=== PATIENT | male | born 1995 | race Asian ===

== ENCOUNTER 2020-03-26 23:38 | Emergency (ER) | payer BC, SELFPAY ==
[2020-03-26 23:44] VITALS: BP 148/98; PULSE 91; RESP 22; TEMP 36.9; O2SAT 100
--- NOTE | 2020-03-26 23:49 | ED.SOB ---
HPI - SOB/Dyspnea General Chief Complaint: Shortness of Breath/Dyspnea Stated Complaint: SHORTNESS OF BREATH, LIGHTHEADED Time Seen by Provider: 03/26/20 23:40 Source: patient Mode of arrival: Ambulatory Limitations: no limitations History of Present Illness HPI Narrative: 25M nonsmoker with history of chronic kidney disease presents with his mother and a chief complaint of shortness of breath, fatigue, poor appetite and dizziness over the course of the week. He has had no fever chills. He denies any runny nose, sore throat or cough. He denies exposure to coronavirus. He denies any chest pain or abdominal pain. He sees Dr. Salmeron and has never had dialysis. He denies dietary change or new medications. MD Complaint: shortness of breath Onset (ago): day(s) Severity: moderate Consistency/Duration: constant Relieving factors: rest Exacerbating factors: exertion Associated symptoms: dizziness Treatment prior to arrival: none Related Data Home oxygen amount: none Allergies Allergy/AdvReac Type Severity Reaction Status Date / Time No Known Drug Allergies Allergy Verified 03/26/20 23:45 Review of Systems Constitutional Constitutional: Denies chills, Denies fatigue, Denies fever(s), Denies frequent falls, Denies lethargy and Reports weakness Eyes Eyes: Denies change in vision, Denies eye discharge, Denies irritation and Denies loss of vision ENT Ears, Nose, Mouth, and Throat: Denies change in voice, Reports dizziness, Denies neck pain, Denies sore throat and Denies throat swelling Cardiovascular Cardiovascular: Denies chest pain, Denies irregular heart rhythm, Denies lightheadedness, Denies palpitations, Denies dyspnea, Denies dyspnea on exertion and Denies orthopnea Respiratory Respiratory: Denies cough, Denies dyspnea, Denies dyspnea on exertion and Denies wheezing Gastrointestinal Gastrointestinal: Denies abdominal pain, Denies change in bowel habits, Denies diarrhea, Denies nausea and Denies vomiting Musculoskeletal Musculoskeletal: Denies neck pain and Denies numbness Integumentary/Breasts Skin/Breast: Denies pruritus, Denies erythema, Denies rash and Denies wounds Neurologic Neurologic: Denies behavioral changes, Denies confusion, Reports dizziness, Denies frequent falls, Denies loss of vision, Denies numbness and Reports weakness Psychiatric Psychiatric: Denies anxiety, Denies behavioral changes, Denies confusion, Denies depression, Denies homicidal ideation and Denies suicidal ideation Endocrine Endocrine: Denies fatigue, Denies flushing and Denies palpitations Hematologic/Lymphatic Hematologic/Lymphatic: Denies easy bruising Allergic/Immunologic Allergic/Immunologic: Denies urticaria, Denies throat swelling and Denies wheezing Patient History Social History Smoking Status: Never smoker Smoking Status: Never smoker Exam Narrative Exam Narrative: GENERAL: [25] year old patient appears stated age. Well-nourished, well-developed patient, in mild distress. HEAD: Atraumatic. Normocephalic. EYES: Pupils equal round and reactive. Extraocular motions intact. No scleral icterus. No injection or drainage. ENT: Moist mucous membranes Nose without bleeding, purulent drainage. Throat without erythema, tonsillar hypertrophy or exudate. Airway patent. NECK: Trachea midline. Non tender CARDIOVASCULAR: Regular rate and rhythm without murmurs, gallops, or rubs. RESPIRATORY: Clear to auscultation. Breath sounds equal bilaterally. No wheezes, rales, or rhonchi. GASTROINTESTINAL: Abdomen soft, non-tender, nondistended. EXTREMITIES: No edema or joint tenderness. BACK: Nontender without deformity or crepitance. No flank tenderness. NEURO: AOx3. SKIN: No rash or erythema of visible areas Initial Vital Signs Initial Vital Signs: Vital Signs Temperature 98.4 F 03/26/20 23:44 Pulse Rate 91 H 03/26/20 23:44 Respiratory Rate 22 03/26/20 23:44 Blood Pressure 148/98 H 03/26/20 23:44 Pulse Oximetry 100 03/26/20 23:44 Course Course Course Narrative: given lack of responsiveness to fluids, and no change in renal function or sodium after fluids, patient will require transfer to facility with nephrology I've spoken with Nephro at [facility] and they are happy to see patient this morning, request transfer to hospitalist, fluid restriction Dr. Leonard at [facility] is happy to accept Orders Ordered: ED Orders 03/26/20 23:50 COVID19 -ED/INPAT/OR/L&D Stat 03/26/20 23:52 XR chest 2V Stat EKG-12 Lead Stat Measure peak expiratory flow ONCE RT Consult Eval and Treat Now 03/26/20 23:57 Complete Blood Count AUTO DIFF Stat Comprehensive Metabolic Panel Stat Lactate (Lactic Acid) Stat 03/27/20 00:29 CT chest abd pel w con Stat 03/27/20 02:15 Basic Metabolic Panel Stat Discontinued Medications Sodium Chloride (Normal Saline 0.9%) 1,000 mls @ 1,000 mls/hr IV BOLUS ONE Stop: 03/27/20 01:19 Last Infusion: 03/27/20 02:05 Dose: 0 mls/hr Documented by: Admin: 03/27/20 00:33 Dose: 1,000 mls/hr Documented by: JESUS Sodium Chloride (Normal Saline 0.9%) 1,000 mls @ 1,000 mls/hr IV BOLUS ONE Stop: 03/27/20 03:14 Last Infusion: 03/27/20 03:25 Dose: 0 mls/hr Documented by: Admin: 03/27/20 02:22 Dose: 1,000 mls/hr Documented by: CARI Vital Signs Vital signs: Vital Signs - 8 hr 03/26/20 23:44 03/27/20 02:29 03/27/20 02:30 Temperature 98.4 F Pulse Rate 91 H 73 75 Respiratory Rate 22 Blood Pressure 148/98 H 133/90 Pulse Oximetry 100 98 98 03/27/20 03:00 03/27/20 03:30 03/27/20 04:00 Temperature Pulse Rate 91 H 78 74 Respiratory Rate Blood Pressure 140/82 139/87 123/77 Pulse Oximetry 99 98 98 03/27/20 04:30 03/27/20 05:00 03/27/20 05:30 Temperature Pulse Rate 73 74 79 Respiratory Rate Blood Pressure 114/73 141/75 H 131/82 Pulse Oximetry 95 97 98 MDM - SOB/Dyspnea Lab Data Result diagrams: 03/26/20 23:57 03/27/20 02:15 Labs: Lab Results 03/26/20 03/26/20 03/26/20 Range/Units 23:50 23:57 23:57 WBC 6.9 (4.5-11.0) X10^3/uL RBC 3.86 L (4.5-5.9) X10^6/uL Hgb 10.6 L (13.5-17.5) g/dL Hct 30.6 L (41-53) % MCV 79.4 L (80-100) fL MCH 27.5 (26-34) PG MCHC 34.6 (30-36) % RDW 13.7 (11.6-14.8) % Plt Count 337 (150-400) X10^3/uL Neut % (Auto) 65.7 (50-75) % Lymph % (Auto) 19.4 L (25-40) % [place] % (Auto) 12.2 (3-14) % Eos % (Auto) 1.7 L (2-4) % Baso % (Auto) 1.0 (0-2) % Neut # (Auto) 4500 (8304-0653) /uL Lymph # (Auto) 1300 (9481-6379) /uL [place] # (Auto) 800 (0-900) /uL Eos # (Auto) 100 (0-450) /uL Baso # (Auto) 100 (0-100) /uL Sodium 111 L* (137-145) mmol/L Potassium 4.0 (3.4-5.1) mmol/L Chloride 71 L* (98-107) mmol/L Carbon Dioxide 27 (22-32) mmol/L BUN 70 H (9-20) mg/dL Creatinine 2.49 H (0.66-1.25) mg/dL Estimated GFR 31.3 L (>60) mL/min BUN/Creatinine Ratio 28.1 H (6-22) Glucose 113 H (70-100) mg/dL Lactate (0.7-2.1) mmol/L Calcium 9.1 (8.4-10.2) mg/dL Total Bilirubin 0.4 (0.2-1.3) mg/dL AST 42 (17-59) IU/L ALT 35 (<50) IU/L Alkaline Phosphatase 136 H (38-126) U/L Total Protein 8.4 H (6.3-8.2) g/dL Albumin 4.9 (3.5-5.0) g/dL Globulin 3.5 (1.7-4.1) g/dL Albumin/Globulin Ratio 1.4 (1.0-2.8) COVID-19 PCR Negative (Negative) 03/26/20 03/27/20 Range/Units 23:57 02:15 WBC (4.5-11.0) X10^3/uL RBC (4.5-5.9) X10^6/uL Hgb (13.5-17.5) g/dL Hct (41-53) % MCV (80-100) fL MCH (26-34) PG MCHC (30-36) % RDW (11.6-14.8) % Plt Count (150-400) X10^3/uL Neut % (Auto) (50-75) % Lymph % (Auto) (25-40) % [place] % (Auto) (3-14) % Eos % (Auto) (2-4) % Baso % (Auto) (0-2) % Neut # (Auto) (9193-7926) /uL Lymph # (Auto) (5554-0064) /uL [place] # (Auto) (0-900) /uL Eos # (Auto) (0-450) /uL Baso # (Auto) (0-100) /uL Sodium 112 L* (137-145) mmol/L Potassium 4.1 (3.4-5.1) mmol/L Chloride 73 L* (98-107) mmol/L Carbon Dioxide 27 (22-32) mmol/L BUN 65 H (9-20) mg/dL Creatinine 2.47 H (0.66-1.25) mg/dL Estimated GFR 31.6 L (>60) mL/min BUN/Creatinine Ratio 26.3 H (6-22) Glucose 104 H (70-100) mg/dL Lactate 1.2 (0.7-2.1) mmol/L Calcium 8.9 (8.4-10.2) mg/dL Total Bilirubin (0.2-1.3) mg/dL AST (17-59) IU/L ALT (<50) IU/L Alkaline Phosphatase (38-126) U/L Total Protein (6.3-8.2) g/dL Albumin (3.5-5.0) g/dL Globulin (1.7-4.1) g/dL Albumin/Globulin Ratio (1.0-2.8) COVID-19 PCR (Negative) Critical Care Time Critical Care Time Critical Care Time: Yes Total Critical Care Time: 30 Attestation: The high probability of a clinically significant, sudden or life threatening deterioration of the [Renal] system(s) required my full and direct attention, intervention and personal management. The aggregate critical care time was [30] minutes. This time is in addition to time spent performing reported procedures but includes the following: [x] Data Review and interpretation [x] Patient assessment and monitoring of vital signs [x] Documentation [x] Medication orders and management
--- NOTE | 2020-03-26 23:52 | DI.RAD.S_ITS ---
PROCEDURE: XR CHEST 2V INDICATIONS: shortness of breath TECHNIQUE: 2 views of the chest were acquired. COMPARISON: None. FINDINGS: Surgical changes and devices: None. Lungs and pleura: Lungs are clear. No pleural effusions or pneumothorax. Mediastinum: Mediastinal contours are normal. Heart size is normal. Bones and chest wall: No suspicious bony abnormalities. Soft tissues appear unremarkable. IMPRESSION: No acute cardiopulmonary disease process. Dictated by: Tracy Whelan MD, PhD on 03/27/2020 at 8:57 Approved by: Tracy Whelan MD, PhD on 03/27/2020 at 8:58
[2020-03-27] VITALS (10 sets, daily range): BP systolic 114–141; BP diastolic 73–90; PULSE 66–91; RESP 20; TEMP 36.6; O2SAT 95–99
[2020-03-27 00:08] LABS: Add Manual Diff / Slide Review NO; Basophils Absolute Auto 100 /uL (0-100); Eosinophils Absolute Auto 100 /uL (0-450); Eosinophils Percent Auto 1.7 % (2-4); Hematocrit 30.6 % (41-53); Hemoglobin 10.6 g/dL (13.5-17.5); Lymphocytes Absolute Auto 1300 /uL (1100-4500); Lymphocytes Percent Auto 19.4 % (25-40); Mean Corpuscular HGB Conc 34.6 % (30-36); Mean Corpuscular Hemoglobin 27.5 PG (26-34); Mean Corpuscular Volume 79.4 fL (80-100); Monocytes Absolute Auto 800 /uL (0-900); Monocytes Percent Auto 12.2 % (3-14); Neutrophils Absolute Auto 4500 /uL (1500-7000); Neutrophils Percent Auto 65.7 % (50-75); Platelet Count 337 X10^3/uL (150-400); Red Blood Cell Count 3.86 X10^6/uL (4.5-5.9); Red Cell Distribution Width 13.7 % (11.6-14.8); White Blood Cell Count 6.9 X10^3/uL (4.5-11.0)
[2020-03-27 00:11] LABS: COVID19 -Nasal RAPID Negative (Negative)
[2020-03-27 00:17] LABS: Alanine Aminotransferase 35 IU/L (<50); Albumin 4.9 g/dL (3.5-5.0); Albumin Globulin Ratio 1.4 (1.0-2.8); Alkaline Phosphatase 136 U/L (38-126); Aspartate Aminotransferase 42 IU/L (17-59); BUN Creatinine Ratio 28.1 (6-22); Bilirubin Total 0.4 mg/dL (0.2-1.3); Blood Urea Nitrogen 70 mg/dL (9-20); Calcium 9.1 mg/dL (8.4-10.2); Carbon Dioxide 27 mmol/L (22-32); Estimated Glomerular Filt Rate 31.3 mL/min (>60); Globulin 3.5 g/dL (1.7-4.1); Glucose 113 mg/dL (70-100); HEMOLYSIS < 15 (0-50); Total Protein 8.4 g/dL (6.3-8.2)
[2020-03-27 00:18] LABS: Lactate (Lactic Acid) 1.2 mmol/L (0.7-2.1)
[2020-03-27 00:27] LABS: Chloride 71 mmol/L (98-107); Sodium 111 mmol/L (137-145)
--- NOTE | 2020-03-27 00:29 | DI.CT.S_ITS ---
PROCEDURE: CT CHEST ABD PEL W CON INDICATIONS: severe SOB, fatigue, dizziness, renal failure, cough TECHNIQUE: After the administration of intravenous contrast, 5 mm thick sections acquired from the lung apices to the symphysis. 5 mm coronal and sagittal reformats were performed, with additional 7 mm MIP reformats through the lungs. For radiation dose reduction, the following was used: automated exposure control, adjustment of mA and/or kV according to patient size. COMPARISON: None. FINDINGS: Image quality: Excellent. CHEST: Lungs and pleura: There is trace amount of bilateral pleural effusion and bibasilar dependent atelectasis . No pneumothorax. Central and peripheral airways appear patent and normal in caliber. Mediastinum: Heart size is normal. Trace pericardial effusion. No mediastinal or hilar adenopathy by size criteria. Thoracic aorta and central pulmonary arteries are normal in size. Esophagus is normal in caliber. No hiatal hernia. Chest wall: No axillary or supraclavicular adenopathy by size criteria. Thyroid gland is within normal limits. ABDOMEN: Solid organs: Liver is normal in size and enhancement. Gallbladder is unremarkable. Biliary system is non dilated. Pancreas enhances normally. Spleen is normal in size and enhancement. No adrenal nodules. Kidneys demonstrate normal size and enhancement, without hydronephrosis. Upper pole left renal cyst is seen. Peritoneum and bowel: There is no bowel obstruction. No gastric or small bowel wall thickening. Mild colonic wall thickening is seen particularly involving ascending colon and transverse colon. No free fluid or free air. No abscess collection. Appendix is visualized and is within normal limits. Nodes and vessels: No retroperitoneal or mesenteric adenopathy by size criteria. Aorta and inferior vena cava are normal in size. Miscellaneous: No ventral hernias. PELVIS: Genitourinary: Bladder wall thickness is normal. Miscellaneous: No inguinal hernias or adenopathy. Bones: No suspicious bony lesions. No vertebral body compression fractures. IMPRESSION: 1. Trace bilateral pleural effusion with adjacent bibasilar dependent atelectasis posteriorly. No pneumothorax. Airway is patent. 2. Mild colonic wall thickening, concerning for low-grade infectious inflammatory colitis. No bowel obstruction. No free fluid or free air. Normal appendix. 3. Left renal cyst. No renal stone or hydronephrosis. No discrepancies from preliminary report. Dictated by: Emeka Kumari M.D. on 03/27/2020 at 8:31 Approved by: Emeka Kumari M.D. on 03/27/2020 at 8:35
[2020-03-27] MEDS: SODIUM CHLORIDE 0.9% 1,000 ML 1000 ML IV ×2 (00:33→02:22)
[2020-03-27 02:36] LABS: BUN Creatinine Ratio 26.3 (6-22); Blood Urea Nitrogen 65 mg/dL (9-20); Calcium 8.9 mg/dL (8.4-10.2); Carbon Dioxide 27 mmol/L (22-32); Estimated Glomerular Filt Rate 31.6 mL/min (>60); Glucose 104 mg/dL (70-100); HEMOLYSIS < 15 (0-50); Potassium 4.1 mmol/L (3.4-5.1)
[2020-03-27 02:41] LABS: Sodium 112 mmol/L (137-145)
[2020-03-27 02:42] LABS: Chloride 73 mmol/L (98-107)
--- NOTE | 2020-03-27 07:06 | PC.NURSE ---
Attempted to call report to receiving nurse at [facility]; no answer.
== END 2020-03-27 07:00 | disposition short-term general hospital (02) ==
PROVIDERS: Emergency Provider Emergency Medicine; Family Provider Pediatrics; PCP Pediatrics
DX: E87.1 Hypo-osmolality and hyponatremia (principal); N17.9 Acute kidney failure, unspecified; R42 Dizziness and giddiness
CPT/HCPCS: 36415; 71046; 71260; 74177; 80048; 80053; 83605; 85025; 87635; 93005; 96365; 96366; 99284; 99291; Q9967